=== PATIENT | female | born 1985 | race Caucasian/White ===

== ENCOUNTER → 2024-06-17 15:22 | Outpatient (REF) | payer OTHER, SELFPAY | LOC: HWRCS 15:22 | PROVIDERS: ATTENDING PHYSICIAN Internal Medicine Cardiovascular Disease; FAMILY PHYSICIAN Family Medicine | DX: Z86.79 Personal history of other diseases of the circulatory system (principal); I10 Essential (primary) hypertension; Z98.890 Other specified postprocedural states | CPT/HCPCS: 93306 ==